=== PATIENT | male | born 1975 | race Caucasian/White ===

== ENCOUNTER 2018-06-24 12:54 | Emergency (ER) | payer SELFPAY ==
[~2018-06-24] VITALS: Ht 165.1 cm; Wt 72.6 kg
[~2018-06-24 12:54] MED LIST: ALPR1TAB72 PO; AMOX500C2 PO; CEPH500C PO; CYCL10TA9 PO; HYDR-707 PO; HYDR1TAB PO; NAPR-243 PO; OXYC-12 PO; TRM50T PO
--- OUTSIDE RECORDS SUMMARY | 2018-06-24 13:01 | XMS REPORT | Clinical Summary ---
Author Author [facility] Organization [facility] Address Unknown Phone Unavailable Care Team Providers Care Label Folder Name Role Phone Self, Referral PCP Unavailable Beverly Jordan RN Unavailable Unavailable Dick Infante RN Unavailable Unavailable Araceli Leblanc RN Unavailable Unavailable Nita Watson RN Unavailable Unavailable Source Comments Some departments are not documenting in the electronic medical record. If you do not see the information that you expected, contact Release of Information in the Health Information Management department at [phone] for further assistance in locating additional records.[facility] Allergies No Known Allergies Medications End Date Status Medication Sig Dispensed Refills Start Date Active ACETAMINOPHEN (TYLENOL Take by 0 PO) mouth. Active IBUPROFEN PO Take by 0 mouth. Active Problems Not on file Social History Date Tobacco Use Types Packs/Day Years Used Current Every Day Smoker Cigarettes 0.5 10.0 Alcohol Use Drinks/Week oz/Week Comments No Sex Assigned at Date Recorded Not on file Industry Job Start Date Occupation Not on file Not on file Not on file Travel End Travel History Travel Start No recent travel history available. 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[employer] Blood Pressure 127/92 02/18/2009 11:03 AM INSPECTOR [employer]ICATING Pulse 60 02/18/2009 11:03 AM INSPECTOR [employer]ICATING Temperature 36.4 C (97.5 F) - Respiratory Rate - 02/18/2009 11:03 AM INSPECTOR MET[employer]RICATING Oxygen Saturation 100% - Inhaled Oxygen - Concentration 11/27/2008 3:51 PM CDT Weight 66.6 kg (146 lb 12.8 oz) - Height - - Body Mass Index - Plan of Treatment Health Maintenance Due Date Last Done Comments PHYSICAL (COMPREHENSIVE) 02/04/1984 EXAM HIV SCREENING 02/04/1992 DTAP/TDAP VACCINES (1 - 1995 Tdap) INFLUENZA VACCINE 11/16/2017 Results Not on filefrom Last 3 Months
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
[2018-06-24] MEDS ORDERED: KETOROLAC 30 MG/ML VIAL IM ONE (13:15)
[2018-06-24 13:19] LABS: BILIRUBIN,URINE NEGATIVE (NEGATIVE); CLARITY,URINE CLEAR; COLOR,URINE YELLOW; GLUCOSE, URINE (UA) NEGATIVE (NEGATIVE); KETONES,URINE NEGATIVE (NEGATIVE); NITRITE,URINE NEGATIVE (NEGATIVE); PROTEIN,URINE NEGATIVE (NEGATIVE)
[2018-06-24 13:20] LABS: AMPHETAMINE SCREEN, URINE NEGATIVE (NEGATIVE); BARBITURATE SCREEN URINE NEGATIVE (NEGATIVE); BENZODIAZEPINES SCREEN URINE NEGATIVE (NEGATIVE); CANNABINOID SCREEN, URINE POSITIVE (NEGATIVE); COCAINE SCREEN URINE NEGATIVE (NEGATIVE); LEUKOCYTE ESTERASE ,URINE NEGATIVE (NEGATIVE); METHADONE STAT NEGATIVE (NEGATIVE); METHAMPHETAMINE SCREEN URINE S NEGATIVE (NEGATIVE); OPIATE SCREEN URINE NEGATIVE (NEGATIVE); OXYCODONE STAT NEGATIVE (NEGATIVE); PROPOXYPHENE STAT NEGATIVE (NEGATIVE); TRICYCLIC ANTIDEPRESSANTS SCRE NEGATIVE (NEGATIVE); UROBILINOGEN,URINE 0.2 MG/DL (NORMAL); WBC,URINE RARE /HPF
--- NOTE | 2018-06-24 13:40 | Diagnostic Imaging Report ---
PROCEDURE: CT abdomen and pelvis without contrast. TECHNIQUE: Multiple contiguous axial images were obtained through the abdomen and pelvis without the use of intravenous contrast. INDICATION: Right flank pain for one day. COMPARISON: 01/20/2009. DISCUSSION: The lung bases are unremarkable. Normal heart size. No pleural or pericardial fluid. The gallbladder, liver, pancreas, stomach, spleen, adrenal glands are unremarkable. Phleboliths are noted within the pelvis. There is no ureteral stone identified. No hydronephrosis. Constipation is present. No evidence for appendicitis. No obstruction, pneumatosis, pneumoperitoneum. The urinary bladder and prostate are unremarkable. No ascites or pathologically enlarged lymph nodes are identified. Aorta is normal in caliber. No osseous abnormality. IMPRESSION: 1. No renal stone or hydronephrosis. Mild constipation is present. Dictated by: Dictated on workstation # [id number]
[2018-06-24] MEDS ORDERED: SULF1TAB35 PO ×2 (13:58→14:11)
[2018-06-24] MEDS ORDERED: NAPR-1071 PO ×2 (13:58→14:11)
[2018-06-24 14:03] VITALS: BP 125/78
== END 2018-06-24 14:03 | disposition home or self-care (01) ==
LOC: EDUNIT# 12:54 → ER FS 12:57
DX: M54.5 Low back pain (principal); N39.0 Urinary tract infection, site not specified; Z87.442 Personal history of urinary calculi; Z90.49 Acquired absence of other specified parts of digestive tract; Z87.891 Personal history of nicotine dependence
CPT/HCPCS: 74176; 80306; 81000

== ENCOUNTER 2018-06-30 14:33 | Emergency (ER) | payer SELFPAY ==
[~2018-06-30] VITALS: Ht 175.3 cm; Wt 72.6 kg
[~2018-06-30 14:33] MED LIST changes: +NAPR-1071 PO; +SULF1TAB35 PO
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
--- OUTSIDE RECORDS SUMMARY | 2018-06-30 14:39 | XMS REPORT | Clinical Summary ---
Author Author [facility] Organization [facility] Address Unknown Phone Unavailable Care Team Providers Care Human Resources File Clerk Name Role Phone Self, Referral PCP Unavailable Beverly Jordan RN Unavailable Unavailable Dick Infante RN Unavailable Unavailable Araceli Leblanc RN Unavailable Unavailable Nita Watson RN Unavailable Unavailable Source Comments Some departments are not documenting in the electronic medical record. 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
[2018-06-30 16:09] LABS: BILIRUBIN,URINE NEGATIVE (NEGATIVE); CLARITY,URINE CLEAR; COLOR,URINE YELLOW; GLUCOSE, URINE (UA) NEGATIVE (NEGATIVE); KETONES,URINE NEGATIVE (NEGATIVE); LEUKOCYTE ESTERASE ,URINE NEGATIVE (NEGATIVE); NITRITE,URINE NEGATIVE (NEGATIVE); PROTEIN,URINE NEGATIVE (NEGATIVE); UROBILINOGEN,URINE 0.2 MG/DL (NORMAL)
[2018-06-30 16:10] LABS: BACTERIA,URINE NEGATIVE /HPF; WBC,URINE RARE /HPF
[2018-06-30] MEDS ORDERED: PHEN-640 PO (18:47)
--- NOTE | 2018-06-30 18:47 | ED GU-Male ---
General Chief Complaint: Abdominal/GI Problems Stated Complaint: PAIN WITH URINATION, NAUSEA Nursing Triage Note: Pt reports being treated for UTI 6 days ago and prescribed Bactrim. Pt reports no relief and c/o burning and pain on urination as well as R flank pain and generalized abd pain and bloating. Pt reports he was also dx w/ 1mm kidney stone. History of Present Illness Date Seen by Provider: Jun 30, 2018 Time Seen by Provider: 18:29 43M c/o dysuria for about a week, no discharge, no penile or testicular pain, has had some intermittent diffuse abdominal discomfort but this is not the reason for his visit and he has no pain at this time. He recently was treated with 5 days of bactrim, according to notes to prevent a UTI, had negative UA and abdominal CT at that time. Has not been sexually active for 2.5 years but has never been checked for gc/chlamydia. Incidentally notes left wrist swelling , has been chronic but got worse during the last week after doing some lifting, no weakness, numbness, tingling, but feels that the swelling interferes with ROM. Allergies and Home Medications Allergies Coded Allergies: No Known Drug Allergies (Unverified , 10/08/11) Home Medications Amoxicillin 500 Mg Capsule, 1 EACH PO TID Prescribed by: LISY SMITH on 05/28/14 1126 Cyclobenzaprine Hcl 10 Mg Tablet, 1 EACH PO Q8H PRN for SPASMS Prescribed by: LISY SMITH on 05/28/14 1126 Naproxen 500 Mg Tablet, 500 MG PO BID Prescribed by: SEDRICK MAK on 06/24/18 141 Oxycodone Hcl/Acetaminophen 1 Each Tablet, 1-2 EACH PO Q6H PRN for PAIN Prescribed by: LISY SMITH on 05/28/14 1126 Phenazopyridine HCl 200 Mg Tablet, 1 TAB PO TID PRN for dysuria Prescribed by: ADAN GARCIA on 06/30/18 1847 Sulfamethoxazole/Trimethoprim 1 Each Tablet, 1 EACH PO BID Prescribed by: SEDRICK MAK on 06/24/18 141 Patient Home Medication List Home Medication List Reviewed: Yes Review of Systems Review of Systems Constitutional: no symptoms reported EENTM: no symptoms reported Respiratory: no symptoms reported Cardiovascular: no symptoms reported Gastrointestinal: see HPI Genitourinary: see HPI Musculoskeletal: see HPI Skin: no symptoms reported Psychiatric/Neurological: No Symptoms Reported Endocrine: No Symptoms Reported Hematologic/Lymphatic: No Symptoms Reported Past [id number] Hx Patient Social History Alcohol Use: Denies Use Recreational Drug Use: No Drug of Choice: MJ Smoking Status: Former Smoker Former Smoker, Quit: Jun 30, 2013 2nd Hand Smoke Exposure: No Recent Foreign Travel: No Contact w/Someone Who Travel: No Recent Infectious Disease Expo: No Recent Hopitalizations: No Immunizations Up To Date Tetanus Booster (TDap): Less than 5yrs Seasonal Allergies Seasonal Allergies: No Past Medical History Surgeries: Yes Abdominal, Orthopedic Respiratory: No Cardiac: No Neurological: No Reproductive Disorders: No Sexually Transmitted Disease: No Genitourinary: Yes Bladder Infection, Kidney Stones Gastrointestinal: No Musculoskeletal: No Endocrine: No HEENT: No Cancer: No Colon Psychosocial: No Integumentary: No Blood Disorders: No Physical Exam Vital Signs Vital Signs - First Documented 06/30/18 15:40 Temp 96.4 Pulse 65 Resp 18 B/P (MAP) 138/85 (102) Pulse Ox 100 O2 Delivery Room Air Capillary Refill : Less Than 3 Seconds Height, Weight, BMI Height: 5'9.00" Weight: 160lbs. oz. [id number]; 22.15 BMI Method:Stated General Appearance: no apparent distress HEENT: other (MMM) Neck: supple Cardiovascular: normal peripheral pulses, regular rate, rhythm Respiratory: lungs clear Gastrointestinal: non tender, soft Male: normal genitalia, no hernia; No testicular tenderness; other (no lesions , no drainage, testes nontender, normal in size and symmetrical) Extremities: other (left distal volar forearm small rubbery nodule about 1 cm, not pulsatile, not warm or erythermatous or fluctuant) Neurologic/Psychiatric: alert, normal mood/affect; No abnormal gait; other ( adial, median, ulna nerve function grossly intact wih ROM in L thumb limited) Skin: warm/dry Progress/Results/Core Measures Suspected Sepsis Recent Fever Within 48 Hours: No Infection Criteria Present: Documented Infection New/Unexplained Altered Menta: No Sepsis Screen: No Definite Risk SIRS Temperature:96.4 Pulse: 65 Respiratory Rate: 18 Blood Pressure 138 /85 Mean: 102 Results/Orders Lab Results Laboratory Tests Test 06/30/18 15:25 Range/Units Urine Color YELLOW Urine Clarity CLEAR Urine pH 6.0 5-9 Urine Specific Duncan <=1.005 1.016-1.022 Urine Protein NEGATIVE NEGATIVE Urine Glucose (UA) NEGATIVE NEGATIVE Urine Ketones NEGATIVE NEGATIVE Urine Nitrite NEGATIVE NEGATIVE Urine Bilirubin NEGATIVE NEGATIVE Urine Urobilinogen 0.2 NORMAL MG/DL Urine Leukocyte Esterase NEGATIVE NEGATIVE Urine RBC (Auto) NEGATIVE NEGATIVE Urine RBC NONE /HPF Urine WBC RARE /HPF Urine Squamous Epithelial Cells NONE /HPF Urine Crystals NONE /LPF Urine Bacteria NEGATIVE /HPF Urine Casts NONE /LPF Urine Mucus NEGATIVE /LPF Urine Culture Indicated NO My Orders Orders - ADAN GARCIA DO Neis Catracho Dna Urine Test (06/30/18 18:41) Chlamydia Trachomatis Urine (06/30/18 18:41) Vital Signs/I&O 06/30/18 06/30/18 15:40 18:56 Temp 96.4 96.4 Pulse 65 65 Resp 18 18 B/P (MAP) 138/85 (102) 138/85 (102) Pulse Ox 100 100 O2 Delivery Room Air Room Air Capillary Refill : Less Than 3 Seconds Blood Pressure Mean: 102 Progress Note : Progress Note 43M here for dysuria and incidentally mentions left wrist swelling. Exam normal. UA normal and was normal at last visit. GC/Chlam are differential considerations and I added these tests. Not consistent w epididymitis, orchitis , stone, UTI. Can tx w pyridium temporarrily for symptom control, and pt will f /u w a pcp for further eval. Given thumb spica (velcro) and referred to ortho for what appears to be ganglion cyst. Departure Impression Primary Impression: Dysuria Additional Impression: Ganglion cyst Disposition: 01 HOME, SELF-CARE Condition: Improved Departure-Patient Inst. Referrals: NO,LOCAL PHYSICIAN (PCP) Primary Care Physician SOLEDAD JOSHI MD Patient Instructions: Dysuria, Adult (DC), Ganglion Cyst (DC) Scripts Phenazopyridine HCl (Pyridium) 200 Mg Tablet 1 TAB PO TID PRN for dysuria for 3 Days, #9 TAB Prov: ADAN GARCIA DO 06/30/18 ADAN GARCIA DO Jun 30, 2018 18:47
[2018-06-30 18:56] VITALS: BP 138/85
== END 2018-06-30 19:04 | disposition home or self-care (01) ==
LOC: EDUNIT# 14:33 → ER FS 14:35
DX: R30.0 Dysuria (principal); M67.432 Ganglion, left wrist; Z87.891 Personal history of nicotine dependence; Z98.890 Other specified postprocedural states; Z87.448 Personal history of other diseases of urinary system; Z87.442 Personal history of urinary calculi; Z85.038 Personal history of other malignant neoplasm of large intestine
CPT/HCPCS: 81000; 99282